=== PATIENT | female | born 1940 | race Caucasian/White ===

== ENCOUNTER 2017-02-15 18:06 | Inpatient (IN) | payer MEDICAID, OTHER ==
[~2017-02-15] VITALS: Ht 162.6 cm; Wt 77.1 kg
[2017-02-15] MEDS ORDERED: UNOBMED (18:14)
[2017-02-15 18:28] VITALS: BP 215/88
[2017-02-15] MEDS ORDERED: Morphine Sulfate 4mg/ml Inj IVP ONE ×2 (19:15→21:00)
[2017-02-15 19:34] LABS: MEAN CORPUSCULAR HEMOGLOBIN 31.4 PG (27.0-31.0); MEAN CORPUSCULAR HGB CONC 34.7 G/DL (32.0-36.0); MEAN CORPUSCULAR VOLUME 90 FL (80-99); MEAN PLATELET VOLUME 6.3 FL (6.5-10.1); PLATELET COUNT 95 K/UL (150-450); RED CELL DISTRIBUTION WIDTH 12.6 % (11.6-14.8); WHITE BLOOD COUNT 10.4 K/UL (4.8-10.8)
[2017-02-15 19:38] LABS: BASOPHILS % (AUTO) 0.8 % (0.0-2.0); EOSINOPHILS % (AUTO) 1.6 % (0.0-3.0); LYMPHOCYTES % (AUTO) 15.1 % (20.0-45.0); MONOCYTES % (AUTO) 5.7 % (1.0-10.0); NEUTROPHILS % (AUTO) 76.9 % (45.0-75.0)
[2017-02-15 19:53] LABS: TROPONIN I < 0.30 ng/mL (<=0.30)
[2017-02-15 19:57] LABS: ANION GAP 12 (5-15); CALCIUM 9.1 mg/dL (8.6-10.2); CARBON DIOXIDE 28 mEQ/L (20-30); CHLORIDE 103 mEQ/L (98-107); CREATININE 1.1 mg/dL (0.5-0.9); HEMOLYSIS 2; POTASSIUM 3.6 mEQ/L (3.4-4.9); SODIUM 143 mEQ/L (135-145)
[2017-02-15 20:01] LABS: INR 1.1 (0.9-1.1); PROTHROMBIN TIME 10.7 SEC (9.30-11.50)
[2017-02-15] MEDS ORDERED: PRAVASTATIN SOD20 M1 ORAL (21:20)
[2017-02-15] MEDS ORDERED: ATORVASTATIN CA40 MG ORAL (21:20)
[2017-02-15] MEDS ORDERED: AMLODIPINE BESYL5 MG ORAL (21:20)
[2017-02-15] MEDS ORDERED: BENAZEPRIL HCL40 MG ORAL (21:22)
[2017-02-15] MEDS ORDERED: METFORMIN HCL500 M5 PO (21:22)
[2017-02-15] MEDS ORDERED: VITAMIN D22000 UNIT PO (21:22)
[2017-02-15] MEDS ORDERED: METOPROLOL SUC100 MG ORAL (21:23)
[2017-02-15] MEDS ORDERED: AMOXICILLIN500 MG ORAL (21:23)
[2017-02-15 21:28] VITALS: BP 170/79
[2017-02-16] VITALS (7 sets, daily range): BP systolic 126–147; BP diastolic 61–81
--- NOTE | 2017-02-16 00:02 | Emergency Room Report ---
History of Present Illness General Chief Complaint: Multiple Trauma/Fall Source: Patient Present Illness HPI This patient states that she was carrying something into her son who has a hip fracture and she is coming on the corner and lost her balance and fell onto her right shoulder and right arm. She states she had sudden pain and feels like the arm is broken. She has severe pain with any movement. She also hit her right forehead on the floor. She denies any other musculoskeletal injury. She does not have any prodromal symptoms such as lightheadedness or palpitations or chest pain prior to the incident. She denies recent illness. She has no other complaints. Allergies: Coded Allergies: No Known Allergies (Unverified , 02/15/17) Patient History Past Medical History: see triage record, HTN Social History: Denies: alcohol use, drug use, smoking Last Menstrual Period: Post Now: No : 2 Para: 2 Reviewed Nursing Documentation: PMH: Agreed, PSxH: Agreed Nursing Documentation-PMH Past Medical History: No History, Except For Hx Hypertension: Yes Review of Systems All Other Systems: negative except mentioned in HPI Physical Exam Vital Signs Date Time Temp Pulse Resp B/P Pulse Ox O2 Delivery O2 Flow Rate FiO2 02/15/17 18:05 98.8 86 16 218/115 97 Room Air Sp02 EP Interpretation: reviewed, normal General Appearance: no apparent distress, alert, GCS 15, non-toxic Head: normocephalic, other - Ecchymosis over R. orbit and face. lower lip small laceration and swelling. Eyes: bilateral eye PERRL, bilateral eye normal inspection ENT: hearing grossly normal, normal pharynx, no angioedema, normal voice Neck: full range of motion, supple/symm/no masses Respiratory: chest non-tender, lungs clear, normal breath sounds, speaking full sentences Cardiovascular #1: regular rate, rhythm, no edema Gastrointestinal: normal bowel sounds, non tender, soft, non-distended, no guarding, no rebound Rectal: deferred Musculoskeletal: back normal, gait/station normal, other - +pain in R. humerus/ shoulder with ROM. TTP R. humerus. Neurologic: alert, oriented x3, responsive, motor strength/tone normal, sensory intact, speech normal Psychiatric: judgement/insight normal, memory normal, mood/affect normal, no suicidal/homicidal ideation Skin: normal color, no rash, warm/dry, well hydrated Medical Decision Making Diagnostic Impression: Primary Impression: Humerus shaft fracture Additional Impressions: Closed head injury Contusion of face Lip laceration Fall ER Course This patient has a spiral mid shaft humerus fracture. There is no evidence of intracranial process or injury from the fall. There is no facial fractures. Patient was in severe pain and despite IV morphine I was unable to obtain pain control. The patient was placed in a long-arm splint and a sling. She was transferred to [facility] as she may need to be placed in rehabilitation. The patient has a second floor apartment and has to use a walker and is unable to put any pressure on her right arm. It is unsafe for this patient to go home at this time. Labs Test 02/15/17 19:24 White Blood Count 10.4 K/UL (4.8-10.8) Red Blood Count 4.40 M/UL (4.20-5.40) Hemoglobin 13.8 G/DL (12.0-16.0) Hematocrit 39.7 % (37.0-47.0) Mean Corpuscular Volume 90 FL (80-99) Mean Corpuscular Hemoglobin 31.4 PG (27.0-31.0) Mean Corpuscular Hemoglobin Concent 34.7 G/DL (32.0-36.0) Red Cell Distribution Width 12.6 % (11.6-14.8) Platelet Count 95 K/UL (150-450) Mean Platelet Volume 6.3 FL (6.5-10.1) Neutrophils (%) (Auto) 76.9 % (45.0-75.0) Lymphocytes (%) (Auto) 15.1 % (20.0-45.0) Monocytes (%) (Auto) 5.7 % (1.0-10.0) Eosinophils (%) (Auto) 1.6 % (0.0-3.0) Basophils (%) (Auto) 0.8 % (0.0-2.0) Prothrombin Time 10.7 SEC (9.30-11.50) Prothromb Time International Ratio 1.1 (0.9-1.1) Activated Partial Thromboplast Time 25 SEC (23-33) Sodium Level 143 mEQ/L (135-145) Potassium Level 3.6 mEQ/L (3.4-4.9) Chloride Level 103 mEQ/L (98-107) Carbon Dioxide Level 28 mEQ/L (20-30) Anion Gap 12 (5-15) Blood Urea Nitrogen 22 mg/dL (7-23) Creatinine 1.1 mg/dL (0.5-0.9) Estimat Glomerular Filtration Rate mL/min (>60) Glucose Level 120 mg/dL (74-106) Calcium Level 9.1 mg/dL (8.6-10.2) Troponin I < 0.30 ng/mL (<=0.30) EKG Diagnostic Results Rate: normal Rhythm: NSR ST Segments: no acute changes Rhythm Strip Diag. Results EP Interpretation: yes Rate: 90's Rhythm: NSR, no PVC's, no ectopy Other X-Ray Diagnostic Results Other X-Ray Diagnostic Results : X-Ray Ordered: R. humerus EP Interpretation: Yes Findings: other Number of Views: 3 Other Impression Spiral shaft fracture of R. humerus. CT/MRI/US Diagnostic Results CT/MRI/US Diagnostic Results : Imaging Test Ordered: CT head, facial bones Impression No acute intracranial process, mass effect or edema. No evidence of facial fracture. See official report. Last Vital Signs Date Time Temp Pulse Resp B/P Pulse Ox O2 Delivery O2 Flow Rate FiO2 02/15/17 21:28 98.1 97 16 170/79 97 Room Air Disposition: XFER SHT-TRM HOSP Condition: Stable Referrals: [facility],REFERRING (PCP) FRANKI DE DIOS D.O. Feb 16, 2017 00:02
[2017-02-16] MEDS ORDERED: Heparin 5000 units/ml inj SUBQ SCH (09:00)
[2017-02-16] MEDS ORDERED: Metoprolol XL 100mg tab ORAL SCH (09:00)
--- NOTE | 2017-02-16 09:36 | Diagnostic Imaging Report ---
Indications: Digital trauma, pain Technique: Continuous helical CT imaging of the face was performed with automatic exposure control on a Siemens sensation [address] scanner. Axial and coronal images were reconstructed at 3 mm slice thickness. CTDI volume(s): 28.2 mGy Total DLP: 625 mGy-cm Findings: Comparison: None No fracture identified. Mild mucoperiosteal thickening trace right maxillary sinus. Remainder of sinuses, bilateral mastoid air cells clear. Absent versus atrophic was is of both optic globes. Orbital anatomy otherwise intact bilaterally. Right periorbital and malar soft tissues mildly swollen and increased attenuation. No associated gas or foreign body. Remaining superficial Soft tissues unremarkable. IMPRESSION: Mild right facial/periorbital soft tissue swelling No other evidence of acute injury Mild right maxillary sinusitis Bilateral optic globe lenticular atrophy versus absence This correlates with Dr. Myrick's preliminary report.
--- NOTE | 2017-02-16 09:37 | Diagnostic Imaging Report ---
Indications: Head trauma, pain Technique: Continuous helical CT imaging of the brain was performed with nonionic exposure control on a Siemens sensation [address] scanner. Axial and coronal images were reconstructed at 5 mm slice thickness and interval. CTDI volume(s): 70 mGy Total DLP: 1354 mGy-cm Findings: Comparison: None Confluent low attenuation is present around the bilateral periventricular and deep cerebral white matter. Ventricles, cisterns, and sulci are diffusely prominent. No evidence of mass or hemorrhage, mass effect, midline shift, hydrocephalus, or increased intracranial pressure. Bone window images are unremarkable. Visualized paranasal sinuses and mastoid air cells are clear. IMPRESSION: No evidence of acute tear or other acute intracranial pathology Bilateral cerebral periventricular and deepwhite matter low attenuation, nonspecific, likely chronic microvascular ischemic in nature. Atrophy. This correlates with preliminary report generated overnight by Dr. Myrick. The CT scanner at [facility] is accredited by the [employer] and the scans are performed using protocols designed to limit radiation exposure to as low as reasonably achievable to attain images of sufficient resolution adequate for diagnostic evaluation.
--- NOTE | 2017-02-16 10:52 | Diagnostic Imaging Report ---
Indications: Right shoulder and arm trauma, pain Technique: 2 views right shoulder Findings: Comparison: None comminuted fracture involving at least greater tuberosity of right humeral head, femoral neck, proximal diaphysis. Mild displacement and angulation. No underlying lytic destructive process. No dislocation or other acute change identified. IMPRESSION: Fracture proximal aspect of the right humerus as described, apparently closed
[2017-02-16] MEDS ORDERED: OXYCODONE-ACET1 EAC5 ORAL (16:57)
[2017-02-16] MEDS ORDERED: ACETAMINOPHEN325 M1 ORAL (16:58)
[2017-02-16] MEDS ORDERED: ZOFRAN4 M3 ORAL (16:58)
--- NOTE | 2017-02-16 19:38 | History and Physical Report ---
DATE OF ADMISSION: 02/16/2017 CHIEF COMPLAINT: Fall and right humerus fracture. HISTORY OF PRESENT ILLNESS: The patient is a pleasant female with history of hypertensive heart disease. She was ambulating and then tripped and fell onto her right arm. She had severe pain, presented to the emergency room. CT scan of the head and facial bones was unremarkable but x-ray of the humerus confirmed a fracture of the proximal aspect of the right humerus. There was mild displacement and angulation. The patient is now admitted for Orthopedics evaluation for pain control. PAST MEDICAL HISTORY: As above. PAST SURGICAL HISTORY: Includes hip surgery. CURRENT MEDICATIONS: Reconciled and reviewed. ALLERGIES: Include sulfa. FAMILY HISTORY: Noncontributory. SOCIAL HISTORY: Negative for tobacco, ethanol, or drugs. REVIEW OF SYSTEMS: Negative except for right arm pain. PHYSICAL EXAMINATION: VITAL SIGNS: Temperature 97, pulse 82, respirations 16, blood pressure 135/75. GENERAL: The patient is well-developed female in no apparent distress. She has some abrasions to her face. HEENT: Head is otherwise normocephalic. NECK: Supple. LUNGS: Clear. ABDOMEN: Soft. EXTREMITIES: Without clubbing, cyanosis, or edema. The right arm is in a brace and a . LABORATORY AND DIAGNOSTIC DATA: CT scan of the head was negative. White count was 10, hemoglobin 13. Creatinine is 1.1. ASSESSMENT: This is a pleasant female admitted with complaints of mechanical fall. She has a history of hypertension. She has a proximal right humerus fracture, currently in a splint and a brace. PLAN: Intravenous pain medications. Await orthopedic consultation. The patient believes that she will not be able to manage without significant assistance and is requesting possible evaluation and placement in retirement facility. Wilbert Lugo M.D. DR: Raciel JOB#: [id number] CC:
--- NOTE | 2017-02-19 22:18 | Consultation ---
DATE OF CONSULTATION: 02/17/2017 ORTHOPEDIC CONSULTATION: DIAGNOSIS: Right humerus fracture. HISTORY OF PRESENT ILLNESS: The patient is a 77-year-old, [id number] female, who slipped and fell. Radiographs of the right humerus revealed significant and extensive comminuted humerus fracture. There is only minimal displacement. PAST MEDICAL HISTORY: Significant for heart disease and hypertension. PAST SURGICAL HISTORY: She has had hip surgery previously. ALLERGIES: She has an allergy to sulfa medication. PHYSICAL EXAMINATION: EXTREMITIES: The right upper extremity is in a sling. No provocative testing was performed. Gross distal neurovascular motor examination of the right upper extremity is normal. RADIOGRAPHS: Radiographs of the right humerus revealed an extensive comminuted but minimally displaced humerus fracture extending from the proximal aspect to the junction of the middle and distal thirds. The patient has a right humerus fracture with minimal displacement and high degree of comminution. I have recommended a Santos and pneumatic brace for comfort and close treatment. All risks, benefits, and alternatives to treatment intervention were discussed in great detail. She should follow up radiographs taken in approximately 10 to 14 days to make sure there is no gross movement fractures. Thank you for the opportunity to consult. Jose Shukla M.D. ([facility]) DR: Mat JOB#: [id number] CC:
--- NOTE | 2017-02-19 22:35 | Cardiology Report ---
APPROVED REPORT EKG Measurement Heart [id number] ID [id number] Normal sinus rhythm Anterolateral infarct, age undetermined Abnormal ECG
--- NOTE | 2017-02-20 03:48 | Discharge Summary 2 SIG ---
DATE OF ADMISSION: 02/16/2017 DATE OF DISCHARGE: 02/16/2017 REASON FOR ADMISSION: 77-year-old female sustained a mechanical fall and fell on the right shoulder and right arm. She reported severe pain with any movements of right forearm She denied dizziness, lightheadedness, black outs prior to fall. She denies palpitations, chest pain, shortness of breath. Workup in the emergency room, such as femur x-ray revealed proximal fracture of the right humerus. The patient was placed in the long arm splint, sling was applied for comfort. CT head was negative for any acute intracranial pathology. CT of facial bone revealed no evidence of facial fracture but demonstrated mild right facial periorbital soft tissue swelling. The patient was medicated for pain. The patient admitted for further management. ADMITTING DIAGNOSES: 1. Status post mechanical fall. 2. Proximal right humerus fracture. 3. Right upper extremity pain. 4. History of hypertension. 5. Closed head injury. 6. Contusion of the head. HOSPITAL STAY: The patient admitted. Pain management provided. Orthopedic surgery consult was requested urgently. Ortho surgeon seen and evaluated the patient . Per ortho- the patient had a right humerus fracture with minimal displacement and high degree of comminution. He recommended a Santos pneumatic brace for comfort and close treatment. All risks, benefits, and alternatives to treatment intervention were discussed by surgeon in great detail with the patient, who agreed to proceed with recommended treatment option. Prior to fall, the patient was living at home, on the second floor,. She felt that she would need help with activities of daily living and requested short term rehabilitation. Transfer was arranged to [facility] for rehabilitation. Arrangement for delivery of Santos brace were done by mechanical planner. The patient was stable for discharge. The patient should have follow up radiographs taken in approximately 10 to 14 days to make sure of no gross movement fractures - as per ortho recommendations. Due to the rapid and unexpected improvement in patient condition, the patient was discharged in 1 day. No surgical intervention warranted. Placement was arranged . FINAL DIAGNOSES: 1. Status post mechanical fall. 2. Proximal right humerus fracture( minimally displaced). 3. Right upper extremity pain. 4. History of hypertension. 5. Closed head injury. 6. Contusion of the head. DISCHARGE INSTRUCTIONS: The patient was transferred to [facility] for further management and rehabilitation. DISCHARGE MEDICATIONS: See medication reconciliation list. Wilbert Lugo M.D. I have been assigned to dictate discharge summary on this account and I was not involved in the patient's management. Eva Nayak N.P. ([facility]) DR: ZACH JOB#: [id number] CC: BRENDA
== END 2017-02-16 20:25 | DRG 563 ==
LOC: EDBD 18:06 → EMR 18:41 → 4E 02-16 03:38 → EDBEDREQ 02-16 04:45 → 4E 02-16 05:45
PROC: 2W3AX1Z Immobilization of Right Upper Arm using Splint (ICD-10-PCS; principal; 2017-02-16)
DX: S42.341A Displaced spiral fracture of shaft of humerus, right arm, initial encounter for closed fracture (principal); I11.9 Hypertensive heart disease without heart failure; W19.XXXA Unspecified fall, initial encounter; Z88.2 Allergy status to sulfonamides
CPT/HCPCS: 29105; 29240; 36415; 70450; 70486; 80048; 84484; 85025; 85610; 85730; 93005; J2405